=== PATIENT | male | born 1965 | race Caucasian/White ===

== ENCOUNTER 2020-07-25 05:03 | Emergency (ER) | payer MEDICARE | END 2020-07-25 07:37 | disposition home or self-care (01) | LOC: ER1 05:03 | DX: M54.42 Lumbago with sciatica, left side (principal); E11.9 Type 2 diabetes mellitus without complications; Z79.899 Other long term (current) drug therapy | CPT/HCPCS: 96372; 99283; J2270 ==

== ENCOUNTER 2020-07-30 09:37 | Emergency (ER) | payer MEDICARE | END 2020-07-30 12:31 | disposition home or self-care (01) | LOC: ER1 09:37 | DX: M54.42 Lumbago with sciatica, left side (principal); E11.9 Type 2 diabetes mellitus without complications; I10 Essential (primary) hypertension; Z79.899 Other long term (current) drug therapy | CPT/HCPCS: 96372; 99283; J1100; J2270 ==